=== PATIENT | female | born 1980 | race Caucasian/White ===

== ENCOUNTER 2024-01-10 09:50 | Emergency (ER) | payer BC, SELFPAY ==
[2024-01-10 09:54] VITALS: BP 128/88
--- NOTE | 2024-01-10 10:17 | ED.GENMED ---
History of Present Illness
<Hilario Self PA-C - Last Filed: 01/10/24 14:38>
General
Chief Complaint: Abdominal Symptoms
Source: patient
Time Seen by Provider: 01/10/24 10:03
Travel History
Have you had any contact with someone who has COVID-19?: No
Do you have any symptoms of coronavirus? Fever > 100 degrees, chills, cough, shortness of breath, sore throat, loss of taste or smell, muscle aches, or headache?: No
History of Present Illness
History of Present Illness:
43-year-old female with no significant past medical history presented emergency department for evaluation of left-sided lower abdominal pain x 2 to 3 days, worse yesterday prompting her to go to her primary care physician patient symptoms were may
be related to a hernia and wanted the patient to get lab work as well as an ultrasound for further evaluation. Patient states that this morning upon awakening pain was worse and after getting to work decided she was in too much pain so left work to
come to the ER for further evaluation. She describes the pain as a mostly dull aching sensation around a 5 out of 10 but states will get bursts of pain where pain will be around an 8 out of 10 but then returned back to its usual constant state of 5
she denies any other associated symptoms including nausea or vomiting, bowel changes, urinary symptoms, fevers, chills, rigors or any other concerns. She did take a Motrin/Tylenol last night with some relief but did not take anything yet today.
Past History
<Hilario Self PA-C - Last Filed: 01/10/24 14:38>
Past History
ED Past Medical History: Psychiatric (depression)
ED Past Surgical History: Appendectomy
Social History
Tobacco: Non-smoker
Alcohol: Occasional (near daily 1-2 drinks)
Drug: None
Personal:
Living: with family
Employment: Employed (teacher)
Family History
Family History: Other (Noncontributory)
Review of Systems
<Hilario Self PA-C - Last Filed: 01/10/24 14:38>
Review of Systems
All Other Systems: ROS reviewed and negative except as documented in HPI and ROS
Phy Exam
<Hilario Self PA-C - Last Filed: 01/10/24 14:38>
Physical Exam
Physical Exam:
GENERAL: Alert , in no apparent distress
EYE: clear conjunctiva b/l
HEAD: NCAT
ENT: o/p clr, mmm.
CARDIAC: Regular rate and rhythm .
LUNGS: Clear breath sounds bilaterally, no acute respiratory distress, no wheezes/rales/rhonchi
ABDOMEN: Soft, mild tenderness within the left lower quadrant, no r/g, no cvat, negative Fay sign
NEUROLOGICAL: Alert and oriented
SKIN: Warm and dry, skin intact.
MUSCULOSKELETAL: well perfused.
PSYCH: Normal and appropriate interaction.
Scores
<Hilario Self PA-C - Last Filed: 01/10/24 14:38>
Heart Failure Risk
Heart Failure Risk Score: Not Applicable
Heart Score for Chest Pain Patients
STEMI patient?: Not applicable
Withdrawal Assessment of Alcohol
Withdrawal Assessment Completed?: Not applicable
Course
<Hilario Self PA-C - Last Filed: 01/10/24 14:38>
Orders/Labs/Results
Orders:
Orders
01/10/24 10:15
Test Result ONCE
01/10/24 10:29
Complete Blood Count/With Diff Urgent
Comprehensive Metabolic Panel Urgent
HCG, Serum Qualitative Screen Urgent
Lipase Urgent
Urinalysis Reflex To Culture Urgent
Date Specimen was Collected: 01/10/24
Time Specimen was Collected: 10:17
Urine Microscopic Reflex Cult Urgent
01/10/24 10:57
CT Abd/pelvis W Iv Cont Urgent
Comment:
Reason For Exam: LLQ/left flank pain x 2 days
Abnormal Lab Results
01/10/24
10:29
RBC 4.10 L 10^6/uL
(4.20-5.40)
MCH 34.6 H pg
(27.0-31.0)
Chloride 108 H mmol/L
(98-107)
Glucose 105 H mg/dl
(70-99)
Leukocyte Esterase Rfl Trace A
(Negative)
01/10/24 10:29
01/10/24 10:29
Vital Signs
Initial and Last Documented VS:
Initial Vital Signs
Temp Pulse Resp BP Pulse Ox
98.9 F 65 18 128/88 100
01/10/24 09:54 01/10/24 09:54 01/10/24 09:54 01/10/24 09:54 01/10/24 09:54
Last Documented Vital Signs
Temp Pulse Resp BP Pulse Ox
98.9 F 67 18 121/85 100
01/10/24 09:54 01/10/24 13:36 01/10/24 09:54 01/10/24 13:36 01/10/24 09:54
<Yaneth Melgar MD - Last Filed: 01/10/24 11:27>
Orders/Labs/Results
Orders:
Orders
01/10/24 10:15
Test Result ONCE
01/10/24 10:29
Complete Blood Count/With Diff Urgent
Comprehensive Metabolic Panel Urgent
HCG, Serum Qualitative Screen Urgent
Lipase Urgent
Urinalysis Reflex To Culture Urgent
Date Specimen was Collected: 01/10/24
Time Specimen was Collected: 10:17
Urine Microscopic Reflex Cult Urgent
01/10/24 10:57
CT Abd/pelvis W Iv Cont Urgent
Comment:
Reason For Exam: LLQ/left flank pain x 2 days
Abnormal Lab Results
01/10/24
10:29
RBC 4.10 L 10^6/uL
(4.20-5.40)
MCH 34.6 H pg
(27.0-31.0)
Chloride 108 H mmol/L
(98-107)
Glucose 105 H mg/dl
(70-99)
Leukocyte Esterase Rfl Trace A
(Negative)
01/10/24 10:29
01/10/24 10:29
Vital Signs
Initial and Last Documented VS:
Initial Vital Signs
Temp Pulse Resp BP Pulse Ox
98.9 F 65 18 128/88 100
01/10/24 09:54 01/10/24 09:54 01/10/24 09:54 01/10/24 09:54 01/10/24 09:54
Last Documented Vital Signs
Temp Pulse Resp BP Pulse Ox
98.9 F 67 18 121/85 100
01/10/24 09:54 01/10/24 13:36 01/10/24 09:54 01/10/24 13:36 01/10/24 09:54
<Hilario Self PA-C - Last Filed: 01/10/24 14:38>
MDM/Problems Addressed
Differential Diagnosis Includes:
Renal/ureteral colic, ovarian cyst, ovarian torsion, diverticulitis/diverticulosis, patient has an IUD so minimal concern for or related complications
MDM/Problems Addressed:
43-year-old female presented emergency department for evaluation of left lower quadrant pain over the last 48 hours, colicky in nature, pain worse today prompting visit to the emergency department. Saw primary care physician yesterday felt symptoms
were related to a hernia however there are no hernias on exam. Patient's waxing and waning nature of her symptoms seems to be consistent with a possible renal/ureteral colic. Will check labs, urine, CT imaging and reassess following. Patient is
declining anything for pain at this time.
<Hilario Self PA-C - Last Filed: 01/10/24 14:38>
*Pulse Oximetry
Patient hypoxic: no
*Critical Care Note
Total Time (30-74mins, 75-104mins- exclusive of procedures): Not Applicable
<Hilario Self PA-C - Last Filed: 01/10/24 14:38>
Patient Management
Discussion with other providers: PCP
Escalation/DeEscalation of care consider admission/obs:
Patient CT scan shows diverticulosis without diverticulitis and mild colonic material within the colon. Advised patient to increase intake of fiber and take a stool softener supplementation as needed. I notified patient's primary care provider who
will help follow-up with the patient. Patient aware of return precautions but is otherwise stable for discharge home.
ED Attending Note
<Hilario Self PA-C - Last Filed: 01/10/24 14:38>
-
Portions of this chart may have been created with voice recognition software.� Occasional wrong word or��sound alike� substitutions may have occurred due to the inherent limitations of voice recognition software.
<Yaneth Melgar MD - Last Filed: 01/10/24 11:27>
ED Attending Note
Patient seen and examined by attending physician: Yes
I performed the substantive portion of visit, reviewed & personally made and approve the management plan that is documented in note by myself or LINDSAY.: Yes
ED Attending Note:
Patient appears well and comfortable. Awaiting CT to assess for her left mid and lower abdominal tenderness. Her abdomen is soft without rebound or guarding. But she does have tenderness on her left lower quadrant area. Lungs are clear.
Discharge Plan
Departure
Patient Disposition: Home (Routine Discharge)
Date of Disposition: 01/10/24
Time of Disposition: 13:26
Patient with high blood pressure during this ER visit?: No
Discharge Problem:
Diverticulosis
Instructions: Diverticulosis (DC)
Prescriptions:
No Action
bupropion HCl 300 MG tablet extended release 24 hr
300 mg PO DAILY
escitalopram oxalate 10 MG tablet
10 mg PO DAILY Qty: 30 0RF
Referrals:
Jessica Lucero CRNP [Family Provider] -
Interventions
Interventions:
*Risk Screen - Suicide Last Done: 01/10/24 10:41
*General Assessment Last Done: 01/10/24 10:41
*Neglect/Abuse Screening Last Done: 01/10/24 10:41
*ED COVID-19 Vaccine History Last Done: 01/10/24 09:57
*Nursing Disposition Last Done: 01/10/24 13:36
UX-Mqrmbj-[id number] Assessment Last Done: 01/10/24 10:41
Discharge Date and Time
Discharge Date/Time: 01/10/24 13:37
[2024-01-10 10:50] LABS: Urine Albumin Negative (Neg - Trace); Urine Bilirubin Negative (Negative); Urine Character Clear (Clear); Urine Color Yellow; Urine Glucose Negative (Negative); Urine Ketone Negative (Negative); Urine Leukocyte Trace (Negative); Urine Nitrite Negative (Negative); Urine Occult Blood Negative (Negative); Urine Specific Gravity 1.005 (<1.030); Urine Urobilinogen Negative (Neg - 1+)
[2024-01-10 10:57] LABS: HCG, Serum Qualitative Screen Negative
[2024-01-10 11:03] LABS: % Immature Granulocytes 0.4 % (0-0.5); % Lymphocytes 22.2 % (20.5-51.1); % Monocytes 8.2 % (1.7-9.3); % Neutrophils 67.2 % (42.2-75.2); Absolute Basophils 0.1 10^3/uL (0-0.2); Absolute Eosinophils 0.1 10^3/uL (0-0.7); Absolute Lymphocytes 1.5 10^3/uL (1.2-3.4); Absolute Monocytes 0.6 10^3/uL (0.1-0.6); Absolute Neutrophils 4.7 10^3/uL (1.4-6.5); Hematocrit 39.9 % (37.0-47.0); Hemoglobin 14.2 g/dL (12.0-16.0); Mean Corp Hgb Conc. 35.6 g/dL (33.0-37.0); Mean Corpuscular Hgb 34.6 pg (27.0-31.0); Mean Corpuscular Volume 97.3 fL (81.0-99.0); Mean Platelet Volume 9.3 fL (7.4-10.4); Nucleated Red Blood Cells % 0 %; Platelet Count 239 10^3/uL (130-400); Red Cell Dist. Width 11.7 % (11.5-14.5); White Blood Cell Count 6.9 10^3/uL (4.8-10.8)
[2024-01-10 11:05] LABS: ALT (SGPT) 25 U/L (0-35); AST (SGOT) 27 U/L (14-36); Albumin 4.3 g/dl (3.5-5.0); Alkaline Phosphatase 65 U/L (38-126); Blood Urea Nitrogen 17 mg/dl (7-17); Calcium 9.7 mg/dl (8.4-10.2); Carbon Dioxide 23 mmol/L (22-30); Chloride 108 mmol/L (98-107); Glucose 105 mg/dl (70-99); Lipase 165 U/L (23-300); Potassium 4.3 mmol/L (3.5-5.1); Sodium 136 mmol/L (135-145); Total Bilirubin 0.5 mg/dl (0.2-1.3); Total Protein 7.3 g/dl (6.3-8.2); eGFR > 60.00
[2024-01-10 11:14] LABS: Urine Red Blood Cell 0-2 /HPF (0-2); Urine White Cell 0-2 /HPF (0-5)
[2024-01-10 13:13] VITALS: BP 121/85
[2024-01-10 13:36] VITALS: BP 121/85
== END 2024-01-10 13:37 | disposition home or self-care (01) ==
LOC: EMR 09:50
PROVIDERS: Physician Assistant Medical; EMERGENCY PHYSICIAN Emergency Medicine; FAMILY PHYSICIAN Nurse Practitioner Family
DX: K57.90 Diverticulosis of intestine, part unspecified, without perforation or abscess without bleeding (principal); F32.A Depression, unspecified; Z90.49 Acquired absence of other specified parts of digestive tract
CPT/HCPCS: 99284; 74177; 80053; 81003; 81015; 83690; 84703; 85025; Q9967